=== PATIENT | female | born 1965 | race Caucasian/White ===

== ENCOUNTER 2017-03-02 08:39 | Inpatient (IN) | payer OTHER ==
[2017-01-28 12:55] VITALS: BMI 37.0
--- NOTE | 2017-01-28 13:18 | PAT Medication Instructions ---
Service Date Jan 28, 2017. Current Home Medication List Cyanocobalamin (Vitamin B12 500MCG), 1,000 MCG PO QAM Furosemide (Lasix), 40 MG PO Spironolactone (Aldactone), 25 MG PO QAM Medication Instructions For Your Scheduled Surgery - Hold the following medications the morning of surgery: Furosemide (Lasix), 40 MG PO QAM Spironolactone (Aldactone), 25 MG PO QAM Cyanocobalamin (Vitamin B12 500MCG), 1,000 MCG PO QAM If you have any questions please call us at [phone] (Eufemia Colon PA-C) or [phone] or [phone]
--- NOTE | 2017-01-28 13:53 | DIAGNOSTIC IMAGING REPORT ---
CHEST PREADMISSION(PA/LAT) CLINICAL HISTORY: Preoperative chest COMPARISON STUDY: No previous studies for comparison. FINDINGS: The cardiac and mediastinal contours are normal. There is no evidence of focal pulmonary consolidation. There is no evidence of failure. No pleural effusions are visualized.[ IMPRESSION: No active disease in the chest. Electronically signed by: Jerald Yuen M.D. 01/28/2017 1:52 PM Dictated Date/Time: 01/28/2017 1:51 PM
[2017-01-28 14:32] LABS: BASO % 0.6 %; BASO ABS # 0.05 K/uL (0-0.2); COMPLETE YES; EOS % 2.5 %; IG% 0.7 %; LYMPH % 31.4 %; LYMPH ABS # 2.59 K/uL (1.2-3.4); MEAN CELL VOLUME 86.9 fL (80-100); MEAN CORPUSCULAR HEMOGLOBIN 29.4 pg (25-34); MEAN CORPUSCULAR HGB CONC 33.8 g/dl (32-36); MEAN PLATELET VOLUME 9.7 fL (7.4-10.4); MONO % 4.8 %; PLATELET COUNT 250 K/uL (130-400); RED BLOOD COUNT 4.49 M/uL (4.2-5.4); WHITE BLOOD COUNT 8.25 K/uL (4.8-10.8)
[2017-01-28 14:41] LABS: PROTHROMBIN TIME (PATIENT) 10.2 SECONDS (9.0-12.0)
[2017-01-28 14:54] LABS: URINE APPEARANCE CLEAR (CLEAR); URINE BILIRUBIN NEG (NEG); URINE COLOR YELLOW; URINE NITRITE NEG (NEG); URINE SPECIFIC GRAVITY 1.023 (1.000-1.030); UROBILINOGEN NEG (NEG); ZZUR CULT IF INDIC CLEAN CATCH NO
[2017-01-28 15:07] LABS: MANUAL MICROSCOPIC REQUIRED? NO; REVIEW REQ? NO
[2017-01-28 15:09] LABS: BUN/CREATININE RATIO 15.2 (10-20); CALCIUM 8.8 mg/dl (8.5-10.1); CREATININE 0.72 mg/dl (0.60-1.20); POTASSIUM 3.8 mmol/L (3.5-5.1)
[2017-01-29 07:24] LABS: ESTIMATED AVERAGE GLUCOSE 105 mg/dl; HA1C FLAG Normal (Normal)
--- NOTE | 2017-03-01 17:50 | HISTORY & PHYSICAL EXAMINATION ---
DATE OF ADMISSION: 03/02/2017 CHIEF COMPLAINT: Chronic left knee pain. HISTORY OF PRESENT ILLNESS: This is a 51-year-old female patient of Dr. Solitario'ana complaining of chronic left knee pain, longstanding, now progressively getting worse. She has been diagnosed with end-stage osteoarthritis per clinical and radiographic exams. The patient has failed conservative treatment including intraarticular injections, anti-inflammatories. The patient has increased pain with weightbearing activities and her pain does interfere with her activities of daily living. PAST MEDICAL HISTORY: Obesity. Otherwise, the patient denies any heart problems, lung problems, diabetes or cancer history. SOCIAL HISTORY: Nonsmoker, nondrinker. PAST SURGICAL HISTORY: Tonsillectomy. REVIEW OF SYSTEMS: Chronic left knee pain, otherwise denies any shortness of breath, chest pain, nausea, vomiting or other joint complaints. MEDICATIONS: Include spironolactone 25 mg daily, Lasix 40 mg daily, and Vitamin B12 daily. ALLERGIES: PENICILLIN AND ERYTHROMYCIN. PHYSICAL EXAMINATION: GENERAL: Well-developed, well-nourished 51-year-old female in no acute distress. She is alert and oriented x3 and pleasant. HEENT: Normocephalic, atraumatic. Extraocular motions are intact. Pupils are equal and reactive to light. HEART: Regular rate and rhythm, no murmurs are appreciated. LUNGS: Clear. ABDOMEN: Soft and nontender, bowel sounds are present. EXTREMITIES: Left knee reveals a mild effusion with limited range of motion of 0-125 degrees. She has a varus deformity with crepitation with passive range of motion. She has 5/5 strength. NEUROLOGIC: Neurovascularly, she is intact in her left lower extremity. DIAGNOSES: Left knee end-stage osteoarthritis, otherwise a healthy 51-year-old female. PLAN: The patient was advised of her diagnosis. Indications, risks, benefits, postop course have all been reviewed. The patient wishes to proceed with a left total knee arthroplasty. Necessary consent forms, preoperative testing and clearances will be obtained.
[2017-03-02] VITALS (8 sets, daily range): BP systolic 106–128; BP diastolic 65–84; PULSE 71–94; TEMP 36.5–36.9; O2SAT 92–99; Ht 165.1 cm; Wt 102.7 kg
[~2017-03-02] VITALS: Ht 165.1 cm; Wt 102.7 kg
[~2017-03-02 08:39] MED LIST: ACETAMINOPHEN 500 MG TAB PO SCH; BUPIVACAINE 0.25% 30 ML VIAL ONE; BUPIVACAINE 0.5 % 5 MG/1 ML PF 10ML VIAL ONE; CYAN500T13 PO; CeleBREX 200 MG CAP PO SCH; DEXAMETHASONE 4 MG TAB PO SCH; FAMOTIDINE 20 MG TAB PO SCH; FRS/40 PO; GABAPENTIN 300 MG CAP PO SCH; LACTATED RINGER'S 1000ML 1,000 ML IV SCH; LACTATED RINGER'S 1000ML 500 ML IV ONE; LACTATED RINGER'S 1000ML IV SCH; METOCLOPRAMIDE HCL 10 MG TAB PO SCH; ROPIVACAINE 5MG/ML 30 ML 150 MG, BUPIVACAINE/EPINEPHR 0.5% MPF 30 ML, KETOROLAC TROMETH... INFIL SCH; SPIR25TA PO; VANCOMYCIN INJ 1,550 MG in SODIUM CHLORIDE 0.9% 500ML 500 ML IV SCH
[2017-03-02] MEDS ORDERED: MIDAZOLAM HCL 1 MG/ML 2ML VIAL ONE ×2 (10:33→12:23)
[2017-03-02] MEDS ORDERED: FENTANYL CITRATE INJ 50 MCG/1 ML 2 ML VIAL ONE (10:34)
--- NOTE | 2017-03-02 11:47 | History & Physical Bridge Note ---
H&P Re-Evaluation Bridge Note: I have examined the patient, reviewed the History & Physical and in the interval since the performance of the History & Physical I have noted the following changes of clinical significance: No changes noted
[2017-03-02] MEDS ORDERED: ORTHO JOINT ANESTHETIC ONE (12:00)
[2017-03-02] MEDS ORDERED: POVIDONE-IODINE OP SOLN 30 ML BTL ONE (12:00)
[2017-03-02] MEDS ORDERED: BACITRACIN 50000 UNIT VIAL ONE (12:01)
[2017-03-02] MEDS ORDERED: LIDOCAINE HCL 2% 2 ML VIAL (20MG/ML) ONE (12:24)
[2017-03-02] MEDS ORDERED: PROPOFOL IV EMULSION 10 MG/ML 20 ML VIAL IV ONE (12:24)
[2017-03-02] MEDS ORDERED: NALOXONE HCL 0.4 MG/1 ML VIAL/CARP IV PRN (12:30)
[2017-03-02] MEDS ORDERED: ATROPINE SULFATE 0.1 MG/ML 5ML SYR IV PRN (12:30)
[2017-03-02] MEDS ORDERED: ONDANSETRON INJ 2 MG/ML 2 ML VIAL IV PRN ×2 (12:30→14:45)
[2017-03-02] MEDS ORDERED: FLUMAZENIL 0.1 MG/1 ML 10 ML VIAL IV PRN (12:30)
[2017-03-02] MEDS ORDERED: LABETALOL HCL IV 5 MG/ML 20ML IV PRN (12:30)
[2017-03-02] MEDS ORDERED: EpHEDrine SULFATE INJ 50 MG/ML AMP IV PRN (12:30)
[2017-03-02] MEDS ORDERED: PROMETHAZINE HCL INJ 12.5 MG in SODIUM CHLORIDE 0.9% 50ML 50 ML IV PRN (12:30)
--- NOTE | 2017-03-02 14:10 | [facility] Operative Report ---
Operative Report Operative Date March 02, 2017. Pre-Operative Diagnosis Left knee end-stage osteoarthritis Post-Operative Diagnosis same Procedure(s) Performed left total knee replacement Surgeon Dr. Solitario Certified Lactation Educator Surgeon(s) Noah JACKSON Estimated Blood Loss 15cc Findings end stage djd oa medial compartment varus Specimens A: left knee bone and tissue Drains 2 hemovac Anesthesia spinal regional block orthomix Disposition Recovery Room / PACU Indications end stage bilateral knee djd I attest to the content of the Intraoperative Record and any orders documented therein. Any exceptions are noted below.
[2017-03-02] MEDS ORDERED: BISACODYL 10 MG SUPP PR PRN (14:45)
[2017-03-02] MEDS ORDERED: MoRPHine SULFATE 2 MG/ML CARP IV PRN ×2 (14:45→16:30)
[2017-03-02] MEDS ORDERED: ALUMINUM/MAGNESIUM/SIMETH (MAALOX MAX) 30 ML UDC PO PRN (14:45)
[2017-03-02] MEDS ORDERED: MAGNESIUM HYDROXIDE SUSP 30 ML UDC PO PRN (14:45)
--- NOTE | 2017-03-02 14:58 | DIAGNOSTIC IMAGING REPORT ---
LEFT KNEE 1 OR 2 VIEWS ROUTINE CLINICAL HISTORY: Postoperative evaluation. COMPARISON: None FINDINGS: Alignment of the total left knee arthroplasty is anatomic. There is no fracture or unexpected radiopaque foreign body. Drains and skin thad are present. IMPRESSION: Expected findings following total left knee arthroplasty. Electronically signed by: Cecilio Machuca M.D. 03/02/2017 2:56 PM Dictated Date/Time: 03/02/2017 2:54 PM
--- NOTE | 2017-03-02 15:36 | Anesthesiology Progress Note ---
Anesthesia Post Op Note Date & Time March 02, 2017 at 15:36 Vital Signs Pain Intensity: 0 Vital Signs Past 12 Hours Date Time Temp Pulse Resp B/P Pulse Ox O2 Delivery O2 Flow Rate FiO2 03/02/17 15:20 71 16 98/57 94 Nasal Cannula 2 03/02/17 15:10 76 16 102/69 97 Nasal Cannula 2 03/02/17 15:00 82 17 109/63 97 Nasal Cannula 2 03/02/17 14:50 72 16 96/60 95 Nasal Cannula 2 03/02/17 14:40 71 16 99/56 99 Nasal Cannula 2 03/02/17 14:32 37 82 16 99/54 98 Mask 10 03/02/17 09:12 36.8 71 18 128/84 98 Room Air Notes Mental Status: alert / awake / arousable, participated in evaluation Pt Amnestic to Procedure: Yes Nausea / Vomiting: adequately controlled Pain: adequately controlled Airway Patency, RR, SpO2: stable & adequate BP & HR: stable & adequate Hydration State: stable & adequate Anesthetic Complications: no major complications apparent
[2017-03-02] MEDS ORDERED: MoRPHine SULFATE 10 MG/ML CARP/VIAL IV PRN (16:30)
[2017-03-02] MEDS ORDERED: MoRPHine SULFATE 4 MG/ML 1 ML CARP\\VIAL IV PRN (16:30)
--- NOTE | 2017-03-02 16:50 | OPERATIVE REPORT ---
DATE OF OPERATION: 03/02/2017 INDICATION FOR PROCEDURE: The patient is a 51-year-old female with chronic progressive bilateral knee osteoarthritis, failed conservative management. Radiographs demonstrate [id number] in the medial compartment of both knees. She is obese. Her BMI is 37.7. She has failed all conservative management. PREOPERATIVE DIAGNOSIS: End-stage osteoarthritis, left knee. POSTOPERATIVE DIAGNOSIS: Same. PROCEDURE: Left total knee arthroplasty. SURGEON: Dr. Solitario. SEED CONE PICKER: Noah Real PA-C. ANESTHESIA: Spinal, regional block and Orthomix. OPERATIVE PROCEDURE: The patient was taken to the operating room, anesthetized under anesthesia as dictated. She was placed supine on the operating room table. Pneumatic tourniquet was placed about her obese upper thigh. A sandbag was placed under her left hip to keep her knee rotated normally. Her left lower extremity was examined. She had full extension and flexion to about 120, a stiff tight knee. Her knee did not have a significant effusion. Her leg was elevated, exsanguinated with Esmarch bandage after the leg was sterilely prepped and draped in the usual sterile fashion with ChloraPrep. The pneumatic tourniquet was raised to 350 mmHg because of her obesity. Anterior incision made across the left knee. Skin was incised sharply. The subcutaneous flaps were fairly deep and reflected off the extensor mechanism for exposure of the extensor mechanism. Incision was made through medial retinaculum and extended up in the mid third of the quadriceps tendon and extended down to the medial tibial tubercle. The intraarticular findings demonstrated that she had grade 4 DJD medial compartment bone on bone but some tricompartmental degenerative arthritic changes. I used the Couch \T\ Nephew Journey 2.0, total knee arthroplasty system using [employer] MRI templating. She was sized for a 4 femur and a 3 tibia. To expose the knee, I did do more releases around the medial and posterior medial tibia to balance the ligaments. We did resect the menisci and cruciate ligaments. The fat pad over the anterior femur for placement of the implant in that area and excised a portion of the infrapatellar fat pad. The femur exposed, a custom femoral cutting block was pinned in position and the distal femoral cut was made. Then the 5-in-1 cutting block was placed and the anterior, posterior and chamfer cuts were made for the size 4 femur. The knee was then extended and a subperiosteal peel lateral release was performed around the patella. Patella width was measured and width was reproduced using freehand cut technique and a 32 mm component best fit the patella. The drill holes were made. The excess lateral facet was beveled off to prevent any impingement. Then the tibia was exposed with retractors and the custom tibial cutting block was pinned in position and the proximal tibial cut was made. Then we used the laminar sidehand to assess ligamentous balance. At that time we did some more medial and posteromedial releases to make sure we had balanced in extension and flexion gap. At this point then the tibia was re-exposed and the 3 tibial trial was externally rotated in line with the tibial tubercle, pinned in position. The punch for the stem was used. The 4 femoral trial was inserted, centered and the notch cutting devices were used. The collet was placed and a trial reduction with a 9 insert gave balanced ligaments through full range of motion and the patella had just a slight liftoff in terms of patellar tracking. She did have a tight IT band and would benefit from lateral release. We went ahead and did a lateral release leaving the synovium intact. This fully balance patella with no tilt and stability through full range of motion. The trials were then removed and then the Orthomix anesthetic cocktail was injected, and knee was copiously irrigated with pulsatile lavage antibiotic solution with bacitracin. Then, the final components were cemented with Simplex cement. Final components were the 4 Oxinium femoral posterior stabilized Couch \T\ Nephew Journey 2.0 femoral Oxinium component. Then, the 3 primary tibial baseplate and the 9 mm posterior stabilized high flex poly and the 32 mm patella. While the cement cured, the Betadine soak was used per protocol. After cement cured, the knee was copiously irrigated with antibiotic solution with bacitracin, 2 drains were brought out laterally and placed 2 Hemovac. The quadriceps tendon and medial retinaculum were closed with [id number] #1 Vicryl sutures. Subcutaneous tissue closed with interrupted 2-0 Vicryl sutures, skin closed with thad. Sterile dressings were applied and the patient tolerated the procedure well. The patient had about 15 mL of blood loss. Noah Real PA-C was my roofer assistant during the closure only. He assisted in closing a portion of the fascia, subcutaneous tissues and skin and placed the dressings and will participate in some of the postoperative care of the patient. I attest to the content of the Intraoperative Record and any orders documented therein. Any exceptio ns are noted below.
[2017-03-02] MEDS: TRANEXAMIC ACID INJ 1,000 MG in SODIUM CHLORIDE 0.9% 100ML 100 ML IV SCH ×2 (16:54→16:55)
[2017-03-02] MEDS: D5W AND 1/2NSS + 20MEQ KCL 1,000 ML IV SCH (16:55)
[2017-03-02] MEDS: FERROUS GLUCONATE 324 MG TAB PO SCH (18:26)
--- NOTE | 2017-03-02 18:41 | Medical Consult ---
History General Date of Service: March 02, 2017. Stated Complaint: Left Knee Degenerative Joint Disease HPI The patient is a 51 year old female who presents to [facility] with complaints of Left Knee Degenerative Joint Disease. The patient's primary care provider is Fide Torres. This is 51 yo F with past medical hx of HTN , severe DJD of left knee, evaluated by orthopedics for ongoing knee pain and discomfort limiting her daily activities pt underwent total knee replacement on left side today recovering well post op pt seen on room 312 has minimum pain on left knee drain present denies of any chest pain or SOB BP in low 100-90's after recovering form anesthesia pt mentions of having dizzy spell post op after arrival to floor now feeling better getting IV fluids no nausea tolerating diet well Historian: patient Review of Systems Constitutional: denies: no symptoms, as stated in HPI, chills, diaphoresis, fever, malaise, weakness, weight gain, weight loss, other Eyes: denies: no symptoms, as stated in HPI, eye pain, tearing, itching, redness, discharge, double vision, visual changes, blurred vision, photophobia, other ENT: denies: no symptoms, as stated in HPI, ear pain, ear discharge, loss of hearing, tinnitus, nasal pain, nasal congestion, rhinorrhea, epistaxis, sore throat, stridor, throat swelling, mouth pain, mouth swelling, dental pain, gum swelling, other Cardiovascular: denies: no symptoms, as stated in HPI, chest pain, chest pressure, chest tightness, diaphoresis, edema, intermittent claudication, orthopnea, palpitations, syncope, other Musculoskeletal: reports: other (left knee DJD s/p knee replacement ) Social History Hx Tobacco Use In Past Year?: No Smoking Status: Never Smoker Allergies Coded Allergies: Erythromycin (Verified Allergy, Unknown, HIVES, 03/02/17) Penicillins (Verified Allergy, Unknown, HIVES, 03/02/17) Current Medications Reported Home Medications Medications Dose Route/Sig Max Daily Dose Days Date Category Vitamin B12 500MCG (Cyanocobalamin) 500 Mcg Tab 1,000 Mcg PO QAM 01/28/17 Reported Lasix (Furosemide) 40 Mg Tab 40 Mg PO DAILY 01/28/17 Reported Aldactone (Spironolactone) 25 Mg Tab 25 Mg PO QAM 01/28/17 Reported Physical Physical Exam Vital Signs: Date Time Temp Pulse Resp B/P Pulse Ox O2 Delivery O2 Flow Rate FiO2 03/02/17 17:41 36.5 78 17 119/75 98 Nasal Cannula 3.0 03/02/17 16:48 36.9 73 17 116/70 98 Nasal Cannula 3.0 03/02/17 16:15 36.8 80 17 113/70 95 Nasal Cannula 3.0 03/02/17 15:45 Nasal Cannula 2.0 03/02/17 15:45 Nasal Cannula 2.0 03/02/17 15:45 36.9 79 16 106/65 95 Nasal Cannula 2.0 03/02/17 15:20 71 16 98/57 94 Nasal Cannula 2 03/02/17 15:10 76 16 102/69 97 Nasal Cannula 2 03/02/17 15:00 82 17 109/63 97 Nasal Cannula 2 03/02/17 14:50 72 16 96/60 95 Nasal Cannula 2 03/02/17 14:40 71 16 99/56 99 Nasal Cannula 2 03/02/17 14:32 37 82 16 99/54 98 Mask 10 03/02/17 09:12 36.8 71 18 128/84 98 Room Air Diagnostics Labs Results Past 24 Hours Test 03/02/17 09:07 Range/Units Bedside Urine Test NEG NEG Diagnostic Radiology LEFT KNEE 1 OR 2 VIEWS ROUTINE CLINICAL HISTORY: Postoperative evaluation. COMPARISON: None FINDINGS: Alignment of the total left knee arthroplasty is anatomic. There is no fracture or unexpected radiopaque foreign body. Drains and skin thad are present. IMPRESSION: Expected findings following total left knee arthroplasty. Impression Assessment and Plan LEFT KNEE DJD S/P TKA : due to end stage DJD POD # 0 cont management as per Ortho protocol PT/OT pain control check CBC in AM to assess for post op /acute blood loss anemia HTN : BP in lower end hold Aldactone , Lasix monitor can be resumed when BP improves /stabilizes FULL CODE DVT PROPHYLAXIS : as per ortho DISPOSITION ; As per Primary team Thank you for allowing us to participate to care for the patient , will continue to follow her during her hospital course . Admit To Med/Surg Code Status Level 1 - Full Code Additional Copies To Fide Torres
[2017-03-02] MEDS ORDERED: VANCOMYCIN INJ 1,550 MG in SODIUM CHLORIDE 0.9% 500ML 500 ML IV SCH (21:30)
[2017-03-02] MEDS: SENNA 8.6 MG TAB PO SCH (22:08)
[2017-03-02] MEDS: OXYCODONE HCL 10 MG TABCR (OXYCONTIN) PO SCH (22:08)
[2017-03-02] MEDS: DOCUSATE SODIUM 100 MG CAP PO SCH (22:09)
[2017-03-02] MEDS: ASPIRIN 81 MG ECTAB PO SCH (22:09)
[2017-03-02] MEDS: ACETAMINOPHEN 500 MG TAB PO SCH (22:10)
[2017-03-03] MEDS: D5W AND 1/2NSS + 20MEQ KCL 1,000 ML IV SCH ×2 (01:35→12:30)
[2017-03-03 03:40] VITALS: BP 90/60; PULSE 82; TEMP 36.6; O2SAT 96
[2017-03-03] MEDS: ACETAMINOPHEN 500 MG TAB PO SCH ×3 (05:48→21:49)
[2017-03-03 06:30] LABS: HEMATOCRIT 33.3 % (37-47); MEAN CELL VOLUME 87.2 fL (80-100); MEAN CORPUSCULAR HEMOGLOBIN 29.8 pg (25-34); MEAN CORPUSCULAR HGB CONC 34.2 g/dl (32-36); MEAN PLATELET VOLUME 9.8 fL (7.4-10.4); PLATELET COUNT 270 K/uL (130-400); RED BLOOD COUNT 3.82 M/uL (4.2-5.4); WHITE BLOOD COUNT 14.59 K/uL (4.8-10.8)
[2017-03-03 07:08] LABS: BUN/CREATININE RATIO 13.1 (10-20); CALCIUM 8.1 mg/dl (8.5-10.1); CREATININE 0.67 mg/dl (0.60-1.20); POTASSIUM 4.3 mmol/L (3.5-5.1)
[2017-03-03 07:10] VITALS: BP 108/68; PULSE 67; TEMP 36.4; O2SAT 96
--- NOTE | 2017-03-03 07:19 | Orthopedic Progress Note ---
Orthopedic Progress Note Date of Service Mar 03, 2017. Subjective Post OP Day: 1 Reports: feeling well, pain controlled w PO medications, Denies: complaints, chest pain, SOB, nausea / vomiting, light headedness, calf pain Objective calves soft nontender, N/V intact, capillary refill less than 2 sec., dressing C /D/I, A&O x3, toes mobile Date Time Temp Pulse Resp B/P (MAP) Pulse Ox O2 Delivery O2 Flow Rate FiO2 03/03/17 07:10 36.4 67 16 108/68 (81) 96 Room Air 03/03/17 03:40 36.6 82 16 90/60 (70) 96 Room Air 03/02/17 23:45 36.8 94 16 123/75 (91) 92 Room Air 03/02/17 23:07 Room Air 03/02/17 19:19 36.5 83 16 123/74 (90) 98 Nasal Cannula 3.0 03/02/17 18:51 36.6 90 16 124/80 (95) 99 Nasal Cannula 2.0 03/02/17 17:41 36.5 78 17 119/75 (90) 98 Nasal Cannula 3.0 03/02/17 16:48 36.9 73 17 116/70 (85) 98 Nasal Cannula 3.0 03/02/17 16:15 36.8 80 17 113/70 (84) 95 Nasal Cannula 3.0 03/02/17 15:45 Nasal Cannula 2.0 03/02/17 15:45 Nasal Cannula 2.0 03/02/17 15:45 36.9 79 16 106/65 (79) 95 Nasal Cannula 2.0 03/02/17 15:20 71 16 98/57 94 Nasal Cannula 2 03/02/17 15:10 76 16 102/69 97 Nasal Cannula 2 03/02/17 15:00 82 17 109/63 97 Nasal Cannula 2 03/02/17 14:50 72 16 96/60 95 Nasal Cannula 2 03/02/17 14:40 71 16 99/56 99 Nasal Cannula 2 03/02/17 14:32 37 82 16 99/54 98 Mask 10 03/02/17 09:12 36.8 71 18 128/84 98 Room Air Laboratory Results 24 Hours: Test 03/03/17 05:47 Hematocrit 33.3 % Hemoglobin 11.4 g/dL Assessment & Plan Assessment: POD #1, Left TKA Plan: PT/ OT DVT proph- ASA D/C planning- OPPT As per medicine. Inhouse Planning Pain Management: Oxycontin, Morphine, PO Tylenol, Oxy IR DVT Prophylaxis: TEDs, SCDs, ASA Discharge Planning Discharge Planning: home with oppt Pain Management: Oxycontin, PO Tylenol, Oxy IR DVT Prophylaxis: TEDs, ASA Therapy: Physical Therapy, Occupational Therapy
[2017-03-03] MEDS: DOCUSATE SODIUM 100 MG CAP PO SCH ×2 (08:47→21:02)
[2017-03-03] MEDS: ASPIRIN 81 MG ECTAB PO SCH ×2 (08:47→21:02)
[2017-03-03] MEDS: CYANOCOBALAMIN 500 MCG TAB (VIT B-12) PO SCH (08:47)
[2017-03-03] MEDS: PANTOprazole SOD 40 MG TAB PO SCH (08:48)
[2017-03-03] MEDS: MULTIVITAMIN TAB PO SCH (08:48)
[2017-03-03] MEDS: FERROUS GLUCONATE 324 MG TAB PO SCH ×3 (08:48→18:13)
[2017-03-03] MEDS: OXYCODONE HCL 10 MG TABCR (OXYCONTIN) PO SCH ×2 (08:53→21:03)
--- NOTE | 2017-03-03 09:34 | Anesthesiology Progress Note ---
Anesthesia Post Op Note Date & Time Mar 03, 2017 at 09:32 Vital Signs Pain Intensity: 1.0 Vital Signs Past 12 Hours Date Time Temp Pulse Resp B/P (MAP) Pulse Ox O2 Delivery O2 Flow Rate FiO2 03/03/17 07:10 36.4 67 16 108/68 (81) 96 Room Air 03/03/17 03:40 36.6 82 16 90/60 (70) 96 Room Air 03/02/17 23:45 36.8 94 16 123/75 (91) 92 Room Air 03/02/17 23:07 Room Air Notes Mental Status: alert / awake / arousable, participated in evaluation Pt Amnestic to Procedure: Yes Nausea / Vomiting: adequately controlled Pain: adequately controlled Airway Patency, RR, SpO2: stable & adequate BP & HR: stable & adequate Hydration State: stable & adequate Neuraxial Anesthesia: was administered, sensory block resolved Anesthetic Complications: no major complications apparent
[2017-03-03 12:27] VITALS: BP 117/70; PULSE 71; O2SAT 98
[2017-03-03] MEDS: OXYCODONE HCL IR 5 MG TAB (IMMEDIATE RELEASE) PO PRN ×3 (13:55→23:56)
[2017-03-03 15:11] VITALS: BP 130/75; PULSE 70; TEMP 36.4; O2SAT 99
--- NOTE | 2017-03-03 19:33 | Progress Note ---
Internal Med Progress Note Date of Service: Mar 03, 2017. Provider Documentation: SUBJECTIVE: no complain of dizzy spell or lightheadedness BP remains stable doing well in PT/OT OBJECTIVE: Vital Signs-as noted below Exam: General-very pleasant, no sign of distress Heart-regular S1/S2 lungs: CTA Abdomen-soft, non tender Extremities-s/p Left TKA, drain present Neuro-no focal deficit Lab data as noted below. ASSESSMENT & PLAN: LEFT KNEE DJD S/P TKA : due to end stage DJD POD # 1 cont management as per Ortho protocol PT/OT pain control Hb remains stable post op no indication for PRBC tx HTN : BP stable resume Aldactone , Lasix FULL CODE DVT PROPHYLAXIS : as per ortho DISPOSITION ; As per Primary team Pt remains medically stable , no active issues noted will sign off please call with any questions or concern Jenifer Gandara MD Vital Signs: Date Time Temp Pulse Resp B/P (MAP) Pulse Ox O2 Delivery O2 Flow Rate FiO2 03/03/17 15:11 36.4 70 16 130/75 (93) 99 Room Air 03/03/17 12:27 71 19 117/70 (86) 98 Room Air 03/03/17 07:30 Room Air 03/03/17 07:10 36.4 67 16 108/68 (81) 96 Room Air 03/03/17 03:40 36.6 82 16 90/60 (70) 96 Room Air 03/02/17 23:45 36.8 94 16 123/75 (91) 92 Room Air 03/02/17 23:07 Room Air Lab Results: Results Past 24 Hours Test 03/03/17 05:47 Range/Units White Blood Count 14.59 4.8-10.8 K/uL Red Blood Count 3.82 4.2-5.4 M/uL Hemoglobin 11.4 12.0-16.0 g/dL Hematocrit 33.3 37-47 % Mean Corpuscular Volume 87.2 80-100 fL Mean Corpuscular Hemoglobin 29.8 25-34 pg Mean Corpuscular Hemoglobin Concent 34.2 32-36 g/dl RDW Standard Deviation 42.0 36.4-46.3 fL RDW Coefficient of Variation 13.0 11.5-14.5 % Platelet Count 270 130-400 K/uL Mean Platelet Volume 9.8 7.4-10.4 fL Sodium Level 141 136-145 mmol/L Potassium Level 4.3 3.5-5.1 mmol/L Chloride Level 110 98-107 mmol/L Carbon Dioxide Level 23 21-32 mmol/L Anion Gap 8.0 3-11 mmol/L Blood Urea Nitrogen 9 7-18 mg/dl Creatinine 0.67 0.60-1.20 mg/dl Est Creatinine Clear Calc Drug Dose 118.1 ml/min Estimated GFR () 118.0 Estimated GFR (Non- 101.8 BUN/Creatinine Ratio 13.1 10-20 Random Glucose 185 70-99 mg/dl Calcium Level 8.1 8.5-10.1 mg/dl Hepatitis C Antibody Screen NEG NEG
[2017-03-03] MEDS: SENNA 8.6 MG TAB PO SCH (21:49)
[2017-03-03 23:35] VITALS: BP 126/68; PULSE 79; TEMP 37; O2SAT 97
[2017-03-04] MEDS: ACETAMINOPHEN 500 MG TAB PO SCH (05:37)
[2017-03-04 07:34] VITALS: O2SAT 97
[2017-03-04 07:36] VITALS: BP 148/83; PULSE 68; TEMP 36.4; O2SAT 100
--- NOTE | 2017-03-04 07:49 | Orthopedic Progress Note ---
Orthopedic Progress Note Date of Service Mar 04, 2017. Subjective Post OP Day: 2 Reports: feeling well, pain controlled w PO medications, Denies: complaints, chest pain, SOB, nausea / vomiting, light headedness, calf pain Objective calves soft nontender, N/V intact, capillary refill less than 2 sec., dressing C /D/I, A&O x3, toes mobile Provena wound vac in tact. Date Time Temp Pulse Resp B/P (MAP) Pulse Ox O2 Delivery O2 Flow Rate FiO2 03/04/17 07:36 36.4 68 17 148/83 (104) 100 Room Air 03/04/17 07:34 97 Room Air 03/03/17 23:45 Room Air 03/03/17 23:35 37.0 79 16 126/68 (87) 97 Room Air 03/03/17 15:45 Room Air 03/03/17 15:11 36.4 70 16 130/75 (93) 99 Room Air 03/03/17 12:27 71 19 117/70 (86) 98 Room Air Assessment & Plan Assessment: POD #2, Left TKA Plan: PT/ OT DVT proph- ASA D/C planning- OPPT today As per medicine. Inhouse Planning Pain Management: Oxycontin, Morphine, PO Tylenol, Oxy IR DVT Prophylaxis: TEDs, SCDs, ASA Discharge Planning Discharge Planning: home with oppt Pain Management: Oxycontin, PO Tylenol, Oxy IR DVT Prophylaxis: TEDs, ASA Therapy: Physical Therapy, Occupational Therapy
[2017-03-04] MEDS ORDERED: RXC5 PO (07:52)
[2017-03-04] MEDS ORDERED: ASPEC81 PO (07:52)
[2017-03-04] MEDS ORDERED: ACET-1138 PO (07:52)
[2017-03-04] MEDS ORDERED: OXYSR10 PO (07:52)
[2017-03-04] MEDS ORDERED: ONDA8TAB6 PO (07:52)
--- NOTE | 2017-03-04 07:55 | Discharge Instructions ---
Discharge Instructions Date of Service Mar 04, 2017. Admission Reason for Admission: Left Knee Degenerative Joint Disease Discharge Discharge Diagnosis / Problem: Left TKA Discharge Goals Goal(s): Improve function Activity Recommendations Activity Limitations: as noted below . Instructions / Follow-Up Instructions / Follow-Up ACTIVITY RECOMMENDATIONS: SELF CARE INSTRUCTIONS AFTER TOTAL KNEE REPLACEMENT A. You may need to continue a physical therapy program after discharge from the hospital. There are several options available to you. Your doctor will assist you in selecting the best one for you. 1. An out-patient facility 2 to 3 times a week for therapy or home therapy. 2. Continue working on all exercises taught to you in the hospital. Your goals should be to increase bending of your knee to 90 degrees and beyond and to fully straighten your knee. B. You may progress at your own pace from walking with a walker or crutches to a cane; then to no assistive devices. C. Make walking a part of your daily routine. Be up as much as comfortable with rest periods throughout the day. Rest with leg elevation is very important. Use the ice wrap frequently for the first 3-4 weeks. D. There are no restrictions on activities. You may ride in a car, shop, participate in inter fold roll cutter and all social activities. E. Wear the long elastic stockings (SHYANN hose) 20 hours a day for 2 weeks after surgery. They can be removed several times a day for laundering and for a bath. F. You may shower, no tub baths until cleared by your doctor. SPECIAL CARE INSTRUCTIONS: VERY IMPORTANT TO READ AND REVIEW A. There are a few signs you need to watch for after you are home. Call [facility] if you notice any of the followin. Increased severe knee pain. Some pain is expected especially when you exercise. 2. Increased swelling in your leg or knee; pain or swelling of the calf muscle in either lower leg. 3. Any fluid drainage from the incision. 4. Shortness of breath or chest pain. B. Please call [facility] at if you have any concerns or questions about your operation or recovery. The doctor or his nurse will return your call promptly. C. You must take antibiotics before dental work, bladder, bowel or other surgery. Your doctor will provide you with a permanent care to carry describing this precaution. IMPORTANT: * REMEMBER TO TAKE ASPIRIN, 81 MG, TWICE DAILY FOR 4 WEEKS UNLESS OTHERWISE DIRECTED. THIS IS YOUR BLOOD THINNER. * HIGH RISK PATIENTS MAY BE PRESCRIBED A STRONGER BLOOD THINNER. THIS WILL BE PROVIDED AT DISCHARGE. * CALL IF INCREASED PAIN, REDNESS, DRAINAGE OR FEVER GREATER THAT 101. * WEAR SHYANN HOSE 20 HOURS PER DAY FOR 2 WEEKS. * YOU MAY HAVE A LARGE BAND-AID LIKE DRESSING (SILVERON). THIS WILL REMAIN ON YOUR INCISION FOR 7 DAYS, THEN CAN BE REMOVED. IF INCISION IS LEAKING THROUGH DRESSING, CALL THE OFFICE . FOLLOW UP VISIT: If appointment is not already scheduled: Please call [facility] to make a follow-up appointment for 2 weeks after your surgery at . YOU HAVE A WOUND VAC OVER YOUR INCISION, REMOVE THIS AND DISCARD ALL PARTS 1 WK AFTER YOUR SURGERY, REPLACE WITH DRY DRESSINGS DAILY UNTIL FOLLOW UP. Current Hospital Diet Patient's current hospital diet: Regular Diet Discharge Diet Recommended Diet: Regular Diet Procedures Procedures Performed: Left total knee arthoplasty Pending Studies Studies pending at discharge: no Laboratory Results Hemoglobin A1c Test 01/28/17 13:21 Range/Units Estimated Average Glucose 105 mg/dl Hemoglobin A1c 5.3 4.5-5.6 % Medical Emergencies . Who to Call and When: Medical Emergencies: If at any time you feel your situation is an emergency, please call 911 immediately. . Non-Emergent Contact Non-Emergency issues call your: Primary Care Provider . "Provider Documentation" section prepared by Adrian Hughes. . VTE Core Measure Inpt VTE Proph given/why not?: Other Anticoagulation (ASA), T.E.Buffy Toscano, [facility] [place] Drug Monitoring Program Search Results: patient reviewed within database, no issues identified
[2017-03-04] MEDS: FERROUS GLUCONATE 324 MG TAB PO SCH (08:32)
[2017-03-04] MEDS: MULTIVITAMIN TAB PO SCH (08:34)
[2017-03-04] MEDS: OXYCODONE HCL 10 MG TABCR (OXYCONTIN) PO SCH (08:34)
[2017-03-04] MEDS: PANTOprazole SOD 40 MG TAB PO SCH (08:34)
[2017-03-04] MEDS: CYANOCOBALAMIN 500 MCG TAB (VIT B-12) PO SCH (08:34)
[2017-03-04] MEDS ORDERED: FUROSEMIDE 40 MG TAB PO SCH (09:00)
[2017-03-04] MEDS ORDERED: SPIRONOLACTONE 25 MG TAB PO SCH (09:00)
[2017-03-04 09:12] VITALS: BP 148/83; PULSE 68; TEMP 36.4; O2SAT 100
[2017-03-04] MEDS: DOCUSATE SODIUM 100 MG CAP PO SCH (09:40)
[2017-03-04] MEDS: ASPIRIN 81 MG ECTAB PO SCH (09:40)
[2017-03-04 09:43] VITALS: BP 140/70; PULSE 95; O2SAT 90
--- NOTE | 2017-03-08 16:10 | DISCHARGE SUMMARY ---
DISCHARGE DIAGNOSIS: Degenerative joint disease left knee. SECONDARY DIAGNOSIS: Obesity. CONSULTS: Dr. Gandara. COMPLICATIONS: None. PROCEDURES: Left total knee arthroplasty performed by Dr. Solitario on 03/02/2017. BRIEF HISTORY: As dictated in history and physical. HOSPITAL SUMMARY: The patient was admitted on the above-noted date and had the above-noted surgery performed which she tolerated well. On the first postoperative day, she was feeling well and pain was controlled. She had no complaints. Calves were soft and nontender. Neurovascular was intact. Dressings clean, dry and intact and toes were mobile. Vital signs were stable. She is afebrile. Hemoglobin was 11.4 and she was started on physical therapy protocol and continued on DVT prophylaxis and pain management and medical management per [facility] service. By her second postoperative day, she was feeling well and pain was controlled. She had no complaints. Calves were soft and nontender. Neurovascular intact. Toes were mobile. Prevena wound VAC was intact. Vital signs are stable. She was afebrile. She was progressing with her physical therapy and was remaining medically stable and it was felt she could be discharged to home. For further review, please see chart. LABORATORY AND X-RAY DATA: As per chart. DISCHARGE INSTRUCTIONS: The patient was discharged to home in satisfactory condition on 03/04/2017. DIET: Regular. ACTIVITY: Follow TK instruction sheets and special care instructions as noted. Follow up with Dr. Venegas in 2 weeks. The patient to call for appointment if one has not been made for you. DISCHARGE MEDICATIONS: Acetaminophen 1000 mg p.o. q. 8 hours, aspirin 81 mg p.o. b.i.d., Zofran 8 mg p.o. q. 8 hours p.r.n. nausea, OxyContin 10 mg p.o. q. 12 hours, oxycodone 5-10 mg p.o. q. 4 hours p.r.n., resume taking vitamin B12 1000 mcg p.o. q.a.m., Lasix 40 mg p.o. daily, spironolactone 25 mg p.o. q.a.m.
== END 2017-03-04 11:39 | disposition home or self-care (01) | DRG 470 ==
LOC: ENRESERVDT → ENRESERVTM → C.ACU 08:39 → C.3E 14:47
PROVIDERS: ADMIT Orthopaedic Surgery Sports Medicine; ATTEND Orthopaedic Surgery Sports Medicine
PROC: 0SRD0J9 Replacement of Left Knee Joint with Synthetic Substitute, Cemented, Open Approach (ICD-10-PCS; principal; 2017-03-02 11:00)
DX: M17.12 Unilateral primary osteoarthritis, left knee (principal); M21.162 Varus deformity, not elsewhere classified, left knee; M25.462 Effusion, left knee; R42 Dizziness and giddiness; I10 Essential (primary) hypertension; E66.9 Obesity, unspecified; R60.0 Localized edema; Z68.37 Body mass index [BMI] 37.0-37.9, adult; Z79.899 Other long term (current) drug therapy